=== PATIENT | male | born 1935 | race Caucasian/White ===

== ENCOUNTER 2019-08-25 13:16 | Inpatient (IN) | payer BC ==
[~2019-08-25] VITALS: Ht 167.6 cm; Wt 65.8 kg
[2019-08-25] MEDS ORDERED: IOHEXOL-350 100 ML VIAL IV ONE (13:33)
[2019-08-25] MEDS ORDERED: IV NS 0.9% 500 ML IV ONE (13:34)
[2019-08-25] MEDS ORDERED: CT SWABBABLE VALVE TRANS SET 1 EA INFUS.SET MC ONE (13:34)
--- NOTE | 2019-08-25 13:37 | NUR ---
patient came in to the er, sent from urgent care for decreased motor function to upper lip, last well known approximately 1900, on room air, breathing evenly and unlabored, connected to the monitor and pulse ox. kept comfortable, will continue to monitor accordingly.
[2019-08-25 13:39] LABS: EOSINOPHILS % (AUTO) 1.3 % (0.0-6.0); HEMATOCRIT 42 % (39-51); HEMOGLOBIN 13.9 g/dL (13.5-17.5); LYMPHOCYTES # (AUTO) 0.9 /CMM (0.8-4.8); LYMPHOCYTES % (AUTO) 18.2 % (20.0-44.0); MEAN CORPUSCULAR HGB CONC 33 g/dl (31.0-36.0); MEAN CORPUSCULAR VOLUME 94 fL (80-96); MONOCYTES # (AUTO) 0.5 /CMM (0.1-1.30); MONOCYTES % (AUTO) 9.4 % (2.0-12.0); NEUTROPHILS # (AUTO) 3.6 /CMM (1.8-8.9); NEUTROPHILS % (AUTO) 70.1 % (43.0-81.0); PLATELET COUNT (AUTO) 140 /CMM (150-450); RED BLOOD CELL COUNT(AUTO) 4.47 MIL/uL (4.5-6.0); WHITE BLOOD COUNT (AUTO) 5.1 K/uL (4.3-11.0)
[2019-08-25 13:47] LABS: CALCIUM, SERUM 9.9 mg/dL (8.5-10.1); CARBON DIOXIDE 30 mmol/L (21-32); CHLORIDE 104 mmol/L (98-107); GLUCOSE 92 mg/dL (74-106); POTASSIUM 4.3 mmol/L (3.5-5.1); SODIUM SERUM 142 mmol/L (136-145); UREA NITROGEN, BLOOD 21 mg/dL (7-18)
--- NOTE | 2019-08-25 14:10 | NUR ---
wheeled patient via wheelchair for ct scan.
--- NOTE | 2019-08-25 14:24 | NUR ---
patient came back from ct
[2019-08-25 14:35] LABS: TRIGLYCERIDES 57 mg/dL (30-150)
[2019-08-25 14:36] LABS: CHOLESTEROL 112 mg/dL (<200); HDL CHOLESTEROL 48 mg/dL (40-60); LDL 62 mg/dL (0-99)
--- NOTE | 2019-08-25 15:00 | NUR ---
NURSING SUP GAVE TELE BED 326-2.
--- NOTE | 2019-08-25 15:21 | NUR ---
DR. POPE ON PHONE WITH RADIOLOGIST
--- NOTE | 2019-08-25 15:47 | NUR ---
PAGED [facility].
[2019-08-25] MEDS ORDERED: ASPIRIN 325 MG TABLET ONE (15:57)
[2019-08-25] MEDS ORDERED: ASPIRIN 325 MG TABLET PO ONE (16:00)
[2019-08-25] MEDS ORDERED: ATOR10TA PO (16:05)
--- NOTE | 2019-08-25 16:17 | NUR ---
report given to Coleen ELIZABETH for ida.
--- NOTE | 2019-08-25 16:57 | NUR ---
wheeled patient via gurney accompanied by RN and emt in no distress. RN at bedside to assume care.
--- NOTE | 2019-08-25 17:00 | NUR ---
ADMIT TO TELE PT BROUGHT IN VIA RROY BY ER STAFF WITH ADMITTING DX OF STROKE. PER PT, HE CAME TO THE ER BECAUSE HE FELT NUMBNESS ON THE L SIDE OF HIS FACE. BESIDES THIS, HE HAS NO ONE SIDED WEAKNESS. ALL EXTREMETIES ARE EQUAL IN STRENGTH. NO C/O HEADACHE OR BLURRED VISION. NO SWALLOWIONG PROBLEMS. NO CARDIAC OR RESPIRATORY DISTRESS NOTED. NO COMPLAINTS OF PAIN OR DISCOMFORT. PT DOES NOT HAVE MUCH SIGNIFICANT MEDICAL HX. HE STATES THAT HE HAS HX OF PROSTATE CANCER AND PROSTATE REMOVAL IN 1998. PT HOOKED UP ON CARDIAC TELE SHOWING SINUS GIANCARLO WITH PACS AND BBB HR OF 58. PT IS ABLE TO AMBULATE WELL. IV ACCESS NOTED ON L AC G18. MRSA SWAB OBTAINED. URINE COLLECTED AND PLACED IN FRIDGE. VS CHECKED NOTED AT 97.3, 56, 18, 161/73, 98% ON ROOM AIR. WILL CONTINUE TO MONITOR.
--- NOTE | 2019-08-25 17:15 | NUR ---
BLAKE COLLINS LIQUOR GRINDER MILL OPERATOR NOTIFICATION LIQUOR GRINDER MILL OPERATOR NOTIFIED OF ADMISSION.
[2019-08-25] MEDS ORDERED: LORAZEPAM 1 MG TABLET PO PRN (17:30)
[2019-08-25] MEDS ORDERED: ACETAMINOPHEN 325 MG TABLET PO PRN (17:30)
[2019-08-25 18:00] VITALS: BP 161/73
[2019-08-25] MEDS: predniSONE 20 MG TABLET PO SCH (18:37)
--- NOTE | 2019-08-25 19:00 | NUR ---
LUBRICATION SERVICER OPENING NOTES Received patient A/o x4, awake, standing at bedside, on stable gait. Patient denies any discomfort at this time. On RA, no SOB/respiratory distress noted. On tele monitor with NSR noted. Discussed to patient the POC within the shift, patient verbalized understanding. Kept on bed clean, dry and comfortable. Call light within easy reach. Will continue to monitor accordingly.
[2019-08-25 20:00] VITALS: BP 148/77
[2019-08-25] MEDS ORDERED: DEXT15DR6 OP (21:39)
[2019-08-25] MEDS ORDERED: ATORVASTATIN 40 MG TABLET PO SCH (22:00)
[2019-08-25] MEDS ORDERED: POLYVINYL ALCOHOL 15 ML BOTTLE EACHEYE PRN ×2 (22:00→22:31)
[2019-08-26] VITALS: BP 118/73
[2019-08-26 00:01] VITALS: BP 133/66
[2019-08-26 04:00] VITALS: BP 133/66
--- NOTE | 2019-08-26 06:24 | NUR ---
COUNTRY PRINTER CLOSING NOTES Patient asleep, easily awaken. On RA, no SOB/respiratory distress noted. On tele monitor with Sinus Rhythm noted. No new complaints made within the shift. All nursing needs attended, due meds given as ordered. Kept on bed clean, dry and comfortable. On fall and aspiration precautions. Call light within easy reach. For MRI brain. Endorsed.
[2019-08-26] MEDS ORDERED: VITA200C22 PO (07:39)
[2019-08-26 08:00] VITALS: BP 116/75
[2019-08-26] MEDS ORDERED: ASPIRIN EC 325 MG TABLET.DR PO SCH (09:00)
[2019-08-26] MEDS: predniSONE 20 MG TABLET PO SCH (09:06)
--- NOTE | 2019-08-26 13:34 | NUR ---
Social service consult requested by for stroke protocol. Per MD notes, pt is a 84-year-old male with a history of hyperlipidemia, who presented to the ER for decreased motor function in the left upper lip that started yesterday evening. He denies any other associated symptoms. Pt has a history of prostrate cancer. FORMWORK CARPENTER met with the pt bedside. Pt is alert and oriented x 4. Pt is pleasant and cooperative. Pt reports, he resides alone in an apartment in [place]. Pt is independent with is ADL's and is ambulatory. Pt has no DME's at home except for a grab bar in the shower. Pt reports to have a good appetite. Pt reports he had trouble sleeping last night due to being uncomfortable in the bed due to his shoulder. Pt drives himself to his doctor appointments but when he is not able to his girlfriend takes him or he gets a Lyft. Pt denies SI/HI at this time. Pt reports he is a bit anxious waiting for the results of his tests. FORMWORK CARPENTER provided pt with active listening and supportive counseling. FORMWORK CARPENTER also provided pt with positive coping skills. No other social service needs are requested at this time. FORMWORK CARPENTER is available if needed. FORMWORK CARPENTER requested pt to reach out to social and human services assistant if needed.
[2019-08-26] MEDS ORDERED: PRED5TAB48 PO (14:38)
[2019-08-26] MEDS ORDERED: PRED20TA PO ×2 (14:38)
[2019-08-26 16:00] VITALS: BP 146/82
--- NOTE | 2019-08-26 18:28 | NUR ---
MS HAMMER SMITH NOTE PATIENT MEDICALLY STABLE FOR DISCHARGE. PATIENT IN NO ACUTE DISTRESS. NO SOB NOTED. PATIENT BREATHING IS EVEN AND UNLABORED. VITAL SIGNS WNL. PATIENT DC INSTRUCTIONS PROVIDED. PATIENT VERBALIZED UNDERSTANDING. PATIENT ID BAND REMOVED. PATIENT IV REMOVED. PATIENT REFUSED TO HAVE SKIN ASSESSMENT. PATIENT STATED " I DID NOT COME IN FOR THAT REASON IT IS OKAY THEY CHECKED ME BEFORE I DONT NEED ANOTHER ONE". EDUCATED RISKS VS BENEFITS. PATIENT CONTINUED TO REFUSE. GAVE DC PACKET AND STROKE EDUCATION PACKET. INSTRUCTED STROKE EDUCATION SIGNS AND SYMPTOMS, NEEDS AFTER DISCHARGE, WHEN TO CALL 911, MEDICATION EDUCATION, AND PERSONAL RISK FACTORS. PATIENT SIGNED BELONGINGS LIST AND HAS BELONGINGS WITH HIM. PATIENT KEPT CLEAN DRY AND COMFORTABLE THROUGHOUT MY SHIFT. PATIENT AMBULATORY WITH STEADY GAIT BACK TO CAR WITH GIRLFRIENDS DAUGHTER DRIVING BACK HOME. MD AWARE OF DISCHARGE.
== END 2019-08-26 18:25 | disposition home or self-care (01) | DRG 74 ==
LOC: ER 13:26 → TELE 16:11 → MED 08-26 11:08
PROVIDERS: ADMIT Nurse Practitioner Acute Care
DX: G51.0 Bell's palsy (principal); E78.5 Hyperlipidemia, unspecified; G89.29 Other chronic pain; D69.6 Thrombocytopenia, unspecified; E86.0 Dehydration; Z85.46 Personal history of malignant neoplasm of prostate; Z82.3 Family history of stroke; Z90.79 Acquired absence of other genital organ(s); F41.9 Anxiety disorder, unspecified; H55.00 Unspecified nystagmus; D47.2 Monoclonal gammopathy; K13.0 Diseases of lips; Z86.73 Personal history of transient ischemic attack (TIA), and cerebral infarction without residual deficits
CPT/HCPCS: 36415; 70496-TC; 70498-TC; 70551-TC; 71045-TC; 80048-TC; 80061-TC; 80305; 82962-TC; 84443-TC; 84484-TC; 85025-TC; 85730-TC; 87081-TC; 92611-TC; 93307-TC; 93880-TC; 97116-TC; 97530-TC; 97535-TC; G0378; J7040; Q9967